=== PATIENT | male | born 1980 | race Caucasian/White ===

== ENCOUNTER 2023-10-16 18:28 | Emergency (ER) | payer SELFPAY ==
[~2023-10-16] VITALS: Ht 175.3 cm; Wt 87.2 kg
[2023-10-16 18:57] LABS: EOSINOPHILS 2.3 % (0-6); HEMATOCRIT 45.4 % (35.0-50.0); HEMOGLOBIN 15.3 g/dL (12.0-18.0); LYMPHOCYTES 25.6 % (24-44); MCH 29.1 (27-36); MCHC 33.8 g/dl (30-36); MONOCYTES 9.2 % (0-12); NEUTROPHILS 61.9 % (39-80); PLATELET COUNT 305 K/uL (140-440); RBC 5.28 M/ul (4.3-5.7); RDW 13.3 (10.5-15.0)
[2023-10-16] MEDS ORDERED: ondansetron HCL 4 MG/2 ML VIAL IV ONE (19:00)
[2023-10-16 19:06] LABS: ALBUMIN 3.7 g/dL (3.4-5.0); ALBUMIN/GLOBULIN RATIO 1.12 (1.1-2.4); BILIRUBIN, TOTAL 0.4 ng/dL (0.2-1.0); BUN/CREATININE RATIO 10.61 (6.0-28.6); CALCIUM 8.2 mg/dL (8.5-10.1); CREATININE, SERUM 1.13 mg/dL (0.70-1.30)
[2023-10-16] MEDS ORDERED: FAMOTIDINE 20 MG/ 2 ML VIAL IV ONE (19:15)
[2023-10-16] MEDS ORDERED: LACTATED RINGER'S 1,000 ML IV ONE (19:15)
[2023-10-16] MEDS ORDERED: LIDOCAINE & ANTACID 35 ML BTL PO ONE (19:30)
[2023-10-16] MEDS ORDERED: MORPHINE SULFATE 4 MG/ML VIAL IV ONE (20:30)
[2023-10-16] MEDS ORDERED: SUCRALFATE 1 GM TAB PO ONE (20:30)
[2023-10-16 20:34] LABS: BILIRUBIN, URINE POSITIVE (negative); BLOOD/HGB, URINE LARGE (Negative); KETONE, URINE SMALL (Negative); LEUK ESTERASE, URINE LARGE (negative); NITRITE, URINE POSITIVE (negative); PH, URINE 6.5 (5-7)
[2023-10-16 20:51] LABS: AMPHETAMINES, URINE POSITIVE (NEGATIVE); BARBITURATES, URINE NEGATIVE (NEGATIVE); BENZODIAZEPINE, URINE NEGATIVE (NEGATIVE); BUPRENORPHINE, URINE NEGATIVE (NEGATIVE); CANNABINOID, URINE NEGATIVE (NEGATIVE); COCAINE, URINE NEGATIVE (NEGATIVE); ECSTASY, URINE NEGATIVE (NEGATIVE); FENTANYL, URINE NEGATIVE (NEGATIVE); METHADONE, URINE NEGATIVE (NEGATIVE); OPIATES, URINE NEGATIVE (NEGATIVE); OXYCODONE, URINE NEGATIVE (NEGATIVE); PHENCYCLIDINE, URINE NEGATIVE (NEGATIVE)
[2023-10-16] MEDS ORDERED: CIPROFLOXACIN 500 MG TAB PO ONE (21:15)
[2023-10-16] MEDS ORDERED: CARAFATE1 GM/10 ML PO (21:20)
[2023-10-16] MEDS ORDERED: CIPRO500 MG PO (21:20)
[2023-10-16] MEDS ORDERED: OMEPRAZOLE20 MG PO (21:20)
[2023-10-16 21:21] LABS: BACTERIA, URINE 1+ /hpf (negative); CASTS, URINE NONE SEEN \\lpf; COLLECTION TYPE, URINE CLEAN CATCH; CRYSTALS, URINE NONE SEEN (0-1+); EPITHELIAL CELLS, URINE NONE SEEN /lpf (0-1+); REFLEX CULTURE, URINE No (No)
[2023-10-16 21:34] VITALS: BP 135/97
== END 2023-10-16 21:34 | disposition home or self-care (01) ==
LOC: ED 18:28
PROVIDERS: Emergency Medicine; Internal Medicine
DX: K21.9 Gastro-esophageal reflux disease without esophagitis (principal); N39.0 Urinary tract infection, site not specified; N20.0 Calculus of kidney; I10 Essential (primary) hypertension; Z87.11 Personal history of peptic ulcer disease; Z91.030 Bee allergy status; Z91.041 Radiographic dye allergy status; Z91.012 Allergy to eggs; Z91.038 Other insect allergy status; Z91.013 Allergy to seafood
CPT/HCPCS: 36415; 51798; 74177; 80053; 80307; 81001; 83690; 85025; 96375; 99284-25; J2270; J2405; J7121; Q9967